=== PATIENT | female | born 1945 | race Caucasian/White ===

== ENCOUNTER 2021-09-22 06:43 | Observation (INO) ==
--- NOTE | 2021-08-27 13:59 | PAT Medication Instructions ---
Medication Instructions Date of Service August 27, 2021 Home Medications acetaminophen 500 mg tablet (Tylenol Extra Strength) 500 mg PO Q6H PRN cetirizine 10 mg tablet 10 mg PO QAM multivitamin 1 tab PO QAM omeprazole 20 mg capsule,delayed release 20 mg PO QAM psyllium husk 3.4 gram/5.4 gram oral powder (Metamucil) 1 tbsp PO QDL turmeric root extract 500 mg capsule 1,000 mg PO BID STOP taking 2 weeks before surgery (or as soon as possible if surgery is within 2 weeks) turmeric root extract 500 mg capsule 1,000 mg PO BID DO NOT take the morning of surgery cetirizine 10 mg tablet 10 mg PO QAM multivitamin 1 tab PO QAM psyllium husk 3.4 gram/5.4 gram oral powder (Metamucil) 1 tbsp PO QDL Take morning of surgery With a small sip of water, OTHERWISE NOTHING TO EAT OR DRINK AFTER MIDNIGHT: acetaminophen 500 mg tablet (Tylenol Extra Strength) 500 mg PO Q6H PRN (okay to take up to 4 hours prior to surgery if needed) omeprazole 20 mg capsule,delayed release 20 mg PO QAM Other Notes If you have any questions please call us at [phone] or [phone] or [phone] or [phone]
--- NOTE | 2021-08-28 09:48 | Anesthesiology Consultation ---
Date of Service August 28, 2021 Assessment & Plan (1) Encounter for pre-operative examination: - COVID screening: Per assessment on 08/26: Travel screen negative, no known COVID-19 positive contacts or current COVID-19 related symptoms. Patient vacc inated + booster. Surgeon arranging preop COVID testing. Awaiting results. - Outpatient joint pathway: Per booking sheet, plan for outpatient joint program. Patient seen at [facility] 08/28. Case reviewed with Dr. Causey. Patient is an acceptable risk to proceed as possible outpatient joint pathway pending perioperative course. Surgeon's office arranging post-op home management. Chart Review Chart Review: Acceptable Risk for Surgery (pending surgeon-ordered PCP preop evaluation) and Patient seen in Pre Admission Testing Teaching & Discussion Pre-Anesthesia Teaching/Discussion Notes: Instructed NPO after midnight before surgery,except medications with 15 cc of water. Medication instructions provided according to the [facility] guidelines. History Surgery Operation Date: 09/22/21 10:35 Proposed Procedures p Right Total Knee Arthroplasty - Kyle Mccracken DO Height/Weight Height: 5 ft 6 in Weight: 81.1 kg Allergies Allergy/AdvReac Type Severity Reaction Status Date / Time meloxicam AdvReac elevated Verified 08/26/21 15:46 LFTs Medications Home Medications Medication Instructions Recorded Confirmed Last Taken acetaminophen 500 mg tablet 500 mg PO Q6H PRN 08/26/21 08/26/21 Unknown (Tylenol Extra Strength) cetirizine 10 mg tablet 10 mg PO QAM 08/26/21 08/26/21 Unknown multivitamin 1 tab PO QAM 08/26/21 08/26/21 Unknown omeprazole 20 mg capsule,delayed 20 mg PO QAM 08/26/21 08/26/21 Unknown release psyllium husk 3.4 gram/5.4 gram 1 tbsp PO QDL 08/26/21 08/26/21 Unknown oral powder (Metamucil) turmeric root extract 500 mg 1,000 mg PO BID 08/26/21 08/26/21 Unknown capsule Past Medical History Medical History DDD (degenerative disc disease) GERD (gastroesophageal reflux disease) History of COVID-19 Dx 10/2020 > symptoms at time of: loss of taste/smell, nausea, headache, fever > resolved History of DVT (deep vein thrombosis) LE- unsure of side (age 29) r/t OCP, was previously on AC (since discontinued), no issues since Osteoarthritis Spinal stenosis Exercise / Class Metabolic Activity II 4-5 Yardwork/Stairs/Walk up hill (one FS (no CP, no SOB)) Past Family History Family History Sister Slow to wake up after anesthesia Past Surgical History Surgical History History of bunionectomy History of colonoscopy History of hammertoe correction History of left hip replacement History of tonsillectomy History of tubal ligation Past Anesthesia History No Hx of Anesthesia Complications Sister: "slow to wake" > no similar issues for patient personally History of PONV No Hx of PONV and Hx of Motion Sickness (Mild) Social History Smoking Status: Never smoker Do You Dip or Chew Tobacco: No Hx Alcohol Use: No Hx Substance Use: No substance use type: does not use Review of Systems Recent "cold" that has resolved except mild residual, occasional dry throat that needs to be "cleared." Patient denies chest pain, shortness of breath, dyspnea on exertion, fever, chills, cough, wheezing, palpitations. Physical Exam Vital Signs VITALS BP 160/91 P 80 TEMP 97.6 SP02 97%RA RESP 16 PHYSICAL Full cervical extension range of motion. Full TMJ range of motion. TMD 3.5 finger breaths Mallampati Score 1 Dentition: intact, several crowns Lungs: clear throughout to auscultation Cardiac: regular rate and rhythm, no murmurs noted Spine: normal Carotid arteries: negative bruit Extremities: no edema Lab Results Anesthesia Preop Results Results Anesthesia Widget: WBC 6.86 K/uL (4.8-10.8) 08/28/21 Hgb 12.3 g/dL (12.0-16.0) 08/28/21 Hct 38.4 % (37-47) 08/28/21 Plt 318 K/uL (130-400) 08/28/21 Na 141 mmol/L (136-145) 08/28/21 K 4.1 mmol/L (3.5-5.1) 08/28/21 Cl 109 mmol/L (98-107) H 08/28/21 CO2 28 mmol/L (21-32) 08/28/21 BUN 17 mg/dl (7-18) 08/28/21 Creat 0.82 mg/dl (0.6-1.2) 08/28/21 Glucose Level 90 mg/dl (70-99) 08/28/21 PT 9.8 Seconds (9.0-12.0) 08/28/21 PTT 27.1 Seconds (21.0-31.0) 08/28/21 INR 1.0 (0.9-1.1) 08/28/21 HA1c 5.8 % (4.5-5.6) H 08/28/21 Urine Color Yellow 08/28/21 Urine Appearance Clear (Clear) 08/28/21 Urine pH 6.0 (4.5-7.5) 08/28/21 Urine Specific [place] 1.014 (1.000-1.030) 08/28/21 Urine Protein Negative (Negative) 08/28/21 Urine Glucose (UA) Negative (Negative) 08/28/21 Urine Ketones Negative (Negative) 08/28/21 Urine Blood Negative (Negative) 08/28/21 Urine Nitrite Negative (Negative) 08/28/21 Urine Bilirubin Negative (Negative) 08/28/21 Urine Urobilinogen Negative (Negative) 08/28/21 Urine Leukocyte Esterase Trace (Negative) H 08/28/21 Urine WBC (Auto) 1-5 /hpf (0-5) 08/28/21 Urine RBC (Auto) 0-4 /hpf (0-4) 08/28/21 Urine Hyaline Casts (Auto) 1-5 /lpf (0-5) 08/28/21 Urine Epithelial Cells (Auto) 10-20 /lpf (0-5) H 08/28/21 Urine Bacteria (Auto) Negative (Negative) 08/28/21 Blood Type A Positive 08/28/21 Antibody Screen NEGATIVE 08/28/21 Testing Electrocardiogram Date: 08/28/21 Findings: + NSR @ (67) Chest X-Ray Date: 08/28/21 No acute process within the chest. Mild chronic interstitial thickening is again noted. Old mild to moderate compression deformities within the lower thoracic spine. Stress Test Date: 02/02/19 Type: exercise Stress echo negative for inducible ischemia. LVEF 60-64%. Moderately increased cLV wall thickness. Exercise capacity below average. Mild AV sclerosis. Mild secondary MR. Mild TR. 100% MPHR. 4.8 METS.
--- NOTE | 2021-09-09 12:16 | History & Physical Report ---
Date of Service September 09, 2021 date of surgery: 09/22/21 Procedure: Right Total Knee Arthroplasty Surgeon: Kyle Mccracken Assessment & Plan (1) Arthritis of right knee: Plan: Further care discussed with patient and at this point in time has failed conservative measures and would like to proceed with a right total knee replacement. Plan on discharge will be home with home health physical therapy as part of outpatient joint program. DVT prophylaxis with TEDs, SCDs and will also place on Xarelto 10mg po daily x 30 days. Patient will have follow up appointment in our office two weeks post op for staple/suture removal and re- evaluation. Patient otherwise has no other questions or concerns. The risks and benefits have been discussed including, but not limited to, risk of infection, nerve injury, stiffness, loss of motion, failure to improve, etc. Reasonable outcomes and options of treatment were discussed. An explanation of appropriate alternatives to the procedure that may be advantageous were discussed and their risks and benefits, as well as the risks and benefits of not proceeding with treatment. I offered to answer any additional inquiries concerning the treatment involved. All the patient's questions were answered. The patient is agreeable, understanding of the treatment plan and alternatives, and wishes to proceed with the treatment plan. History of Present Illness Chief Complaint: Right knee pain Primary Care Provider: Kasie Rankin MD Angelica is a 76 year old female who complains of right knee pain, presents for pre-op evaluation prior to a right total knee replacement by Dr Mccracekn at [facility]. she complains of pain, decreased range of motion, instability and stiffness in her right knee. Currently the patient states that the symptoms are moderate- severe and is described as aching, sharp and throbbing. The symptoms occur continuously. The symptoms are aggravated by ascending stairs, daily activities, first steps while awake walking. Prior NSAIDs include Meloxicam which resulted in elevated LFTs. she has been treated with previous visco injections in the past without much relief. Allergies Allergy/AdvReac Type Severity Reaction Status Date / Time meloxicam AdvReac elevated Verified 08/26/21 15:46 LFTs Home Medications Medication Instructions Recorded Confirmed Type acetaminophen 500 mg tablet 500 mg PO Q6H PRN 08/26/21 08/26/21 History (Tylenol Extra Strength) cetirizine 10 mg tablet 10 mg PO QAM 08/26/21 08/26/21 History multivitamin 1 tab PO QAM 08/26/21 08/26/21 History omeprazole 20 mg capsule,delayed 20 mg PO QAM 08/26/21 08/26/21 History release psyllium husk 3.4 gram/5.4 gram 1 tbsp PO QDL 08/26/21 08/26/21 History oral powder (Metamucil) turmeric root extract 500 mg 1,000 mg PO BID 08/26/21 08/26/21 History capsule Past Med/Surg History Medical History DDD (degenerative disc disease) GERD (gastroesophageal reflux disease) History of COVID-19 Dx 10/2020 > symptoms at time of: loss of taste/smell, nausea, headache, fever > resolved History of DVT (deep vein thrombosis) LE- unsure of side (age 29) r/t OCP, was previously on AC (since discontinued), no issues since Osteoarthritis Spinal stenosis Surgical History History of bunionectomy History of colonoscopy History of hammertoe correction History of left hip replacement History of tonsillectomy History of tubal ligation Family History Sister Slow to wake up after anesthesia Social History Smoking Status: Never smoker Second Hand Exposure: Yes (hx); Hx Alcohol Use: No Hx Substance Use: No Preferred Language: Swedish Communication Ability: Effective Yacht Rigger Required: No Beliefs That Will Affect Care: None Current Living Situation: Alone Feels Safe at Home: Yes Assistive Devices: Glasses Review of Systems Review of Systems: All systems reviewed & are unremarkable except as noted in HPI & below Constitutional: no fever, no chills and no sweats Respiratory: no cough and no dyspnea Cardiovascular: no chest pain, no dyspnea and no orthopnea Gastrointestinal: no abdominal pain, no nausea and no vomiting Musculoskeletal: as per Subjective / HPI Physical Exam Physical Exam: HT: 5ft 6in WT: 81.1kg Constitutional: WD/WN, vitals as above no acute distress Respiratory: normal respiratory effort, lungs clear to auscultation no respiratory distress, no labored breathing and does not use accessory muscles Cardiovascular: RRR, no murmur, no edema Gastrointestinal (Abdomen): normal bowel sounds, soft, nontender, no hepatosplenomegaly Musculoskeletal: Knee: + knee abnormal to inspection (RIGHT KNEE- ), + effusion (+1 effusion), + limited ROM of knee (ROM 0/3/110), + knee ROM with crepitation, + joint line tenderness (medial joint line) and + Maya's sign positive; no deformity, no skin erythema, no ecchymosis, no valgus laxity, no varus laxity, anterior drawer test negative, Raymundo's sign negative and pivot shift test negative Results & Data Results & Data ([facility]) Diagnostic Findings Right Knee X-ray: Right knee series showing advanced degenerative changes to the right knee, narrowing of the lateral compartment and patello-femoral joint with patellar spurring noted, findings showing joint space narrowing of the lateral compartment and patello-femoral joint, osteophyte formation and subchondral sclerosis noted. no acute bony pathology noted.
[~2021-09-22 06:43] MED LIST: ACETAMINOPHEN 500 MG TAB PO SCH; CeleBREX 200 MG CAP PO SCH; EPINEPHrine INJ 1 MG/ML AMP ONE; FAMOTIDINE 20 MG TAB PO SCH; GABAPENTIN 300 MG CAP PO SCH; LIDOCAINE 2%/EPINEPHRINE 1:200,000 20 ML SDV ONE; LR 500ML BOLUS, THEN 15ML/HR IV SCH; METOCLOPRAMIDE HCL 10 MG TABLET PO SCH; ROPIVACAINE 0.5% 5 MG/ML 30 ML VIAL ONE; ROPIVACAINE 0.5% HCL/PF 150 MG, BUPIVACAINE 0.75% MPF 20 ML, EPINEPHrine 30MG/30ML (OR ... INSTIL SCH; TRANEXAMIC ACID 1,000 MG **IV Intra-op IV SCH; TRANEXAMIC ACID 1,000 MG **IV Pre-op IV SCH; ceFAZolin 2000MG 2,000 MG/15 ML SYR IV SCH; dexAMETHasone 4 MG TAB PO SCH
--- NOTE | 2021-09-22 07:29 | History & Physical Bridge Note ---
Date of Service September 22, 2021 History & Physical Bridge Note I have examined the patient, reviewed the History & Physical and in the interval since the performance of the History & Physical I have noted the following changes of clinical significance: no changes noted
[2021-09-22] MEDS ORDERED: MEPIVACAINE HCL 2% 20 ML VIAL ONE (07:43)
[2021-09-22] MEDS ORDERED: ePHEDrine sulfate 50 MG/ML SYR ONE (08:04)
[2021-09-22] MEDS ORDERED: ONDANSETRON INJ 2 MG/ML 2 ML VIAL ONE ×2 (08:04→11:00)
[2021-09-22] MEDS ORDERED: PHENYLEPHRINE 100MCG/ML 5ML SYR ONE (08:04)
[2021-09-22] MEDS ORDERED: DEXAMETHASONE SOD INJ 4 MG/ML VIAL ONE (08:04)
[2021-09-22] MEDS ORDERED: LIDOCAINE 2% 2 ML VIAL/AMP(20MG/ML) INFIL ONE (08:04)
[2021-09-22] MEDS ORDERED: PROPOFOL IV EMULSION 10 MG/ML 20 ML VIAL IV ONE (08:04)
[2021-09-22] MEDS ORDERED: fentaNYL citrate 100 MCG/2 ML VIAL ONE (08:05)
[2021-09-22] MEDS ORDERED: MIDAZOLAM HCL 1 MG/ML 2ML VIAL ONE (08:05)
[2021-09-22] MEDS ORDERED: SCOPOLAMINE 1 MG TDSY TD ONE ×2 (08:30→08:31)
[2021-09-22] MEDS ORDERED: ORTHO JOINT ANESTHETIC ONE (09:28)
[2021-09-22] MEDS ORDERED: ACETAMINOPHEN 1000 MG/100 ML IV IV ONE (10:14)
[2021-09-22] MEDS ORDERED: MoRPHine SULFATE 2 MG/ML CARP ONE (10:18)
[2021-09-22] MEDS ORDERED: KETAMINE 50 MG/5 ML SYRINGE ONE (10:43)
--- NOTE | 2021-09-22 11:04 | Operative Report ---
Post Operative Report Pre & Post Diagnosis Operation Date: 09/22/21 08:55 Pre-Op Diagnosis: Unilateral Primary Osteoarthriits, Right Knee Post-Op Diagnosis: Unilateral Primary Osteoarthriits, Right Knee I identified the patient and participated in the time-out.: Yes Procedure Operation Date: 09/22/21 08:55 Actual Procedures p Right Total Knee Arthroplasty(Right) utilizing [employer]ph[employer]ull[employer] journey 2 patient matched total knee arthroplasty size femur 5 tibia 4 polythirteen patella 32 Kyle Mccracken DO Surgeon Kyle Mccracken DO Computer Science Intern [employer] Estimated Blood Loss 5 Findings Consistent with Post-Op Diagnosis Patient presents with severe end-stage DJD right knee no response to conservative management eburnated [id number] subchondral sclerosis marginal osteophyte subchondral cystic changes with moderate to large effusion Specimens Bone and cartilage Drains Medium bore Hemovac Anesthesia Type MAC Epidural Regional Complications none Disposition Accompanied Patient To Recovery: No Disposition: Recovery Room Indications Patient presents with severe end-stage DJD no response to conservative management failed attempted corticosteroid injection Visco supplementation relative rest activity modification the above intraoperative findings were noted Description of Procedure After proper prepping and draping of the Right lower extremity anterior midline incision was made over the region of the extensor extensor mechanism after meticulous hemostasis was obtained and maintained in subcutaneous tissues a medial parapatellar incision was made The patella was subluxed lateralward the medial lateral gutter were cleaned from any hypertrophic synovitis and scar tissue of the distal femoral block was placed and the distal femoral osteotomy cut was made subsequently the chamfers anterior and posterior osteotomy cuts were made utilizing the 4-in-1 block the tibia was subsequently subluxed anteriorward medial and ateral meniscal remnants were excised in their entirety remnants of the anterior and posterior cruciate ligaments were excised in their entirety excellent exposure of the proximal tibia was obtained the tibial osteotomy guide was placed on the proximal tibial osteotomy cut was made once again the knee was irrigated with copious amounts of sterile saline solution the patella was subsequently everted lateralward thickened scar tissue around the patella was removed the patella was subsequently cut utilizing a freehand technique and was drilled prepared for final preparation and placement of patella socially flexion-extension gaps were checked and the equal and symmetric trials were placed to the appropriate femoral and tibial trials with poly-spacer being placed for equal flexion and extension gaps and full range of motion including extension to 0 and flexion to 140 the trial components after having been taken to recovery range of motion was subsequently removed meticulous hemostasis was obtained and maintained subsequently a knee block injection of joint cocktail including ropivacaine 0.5% 150 mg. Bupivacaine 0.5% epinephrine 1-200,030 mL's toradol 30 mg dexamethasone 4 mg ketamine 10 mg clonidine 100 micrograms normal saline solution 30 mg was infiltrated into the soft tissues of the posterior knee medial lateral gutters and periosteal synovium special attention was paid to protect neurovascular structures at all times subsequently trial components having been removed the knee was irrigated with sterile saline solution. debris was removed the proximal tibia was subsequently prepared and was made ready for the placement of the tibial component tibial component was also cemented and tamped into position the femoral component was subsequently placed and cemented in the position the patellar component was subsequently cemented in position because hemostasis once again obtained and maintained wound having been thoroughly irrigated with debridement and debridement lavage was performed as well as a medial parapatellar incision closed with #1 Vicryl in interrupted fashion subcutaneous was closed with #2 Vicryl skin was closed with skin clips. PA-C was necessary for prepping and drapping as well as wound closure of deep fascia Sub cutaneous tissue and skin and was necessary for the case. A sterile compressive dressing was placed patient was taken to recovery in stable condition of report dictated by Nawaf I attest to the content of the Intraoperative Record and any orders documented therein. Any exceptions are noted below. I attest to the content of the Intraoperative Record and any orders documented therein. Any exceptions are noted below.
[2021-09-22] MEDS ORDERED: HYDROmorphone INJ 0.5 MG/0.5 ML SYR IV PRN (11:49)
[2021-09-22] MEDS ORDERED: oxyCODONE HCL IR 5 MG TAB (IMMEDIATE RELEASE) PO PRN ×2 (11:49)
[2021-09-22] MEDS ORDERED: ONDANSETRON INJ 2 MG/ML 2 ML VIAL IV PRN ×3 (11:49→17:06)
[2021-09-22] MEDS ORDERED: SODIUM CHLORIDE 0.9% 1000ML 1,000 ML IV SCH (12:00)
[2021-09-22] MEDS ORDERED: NALOXONE HCL 0.4 MG/1 ML VIAL/CARP IV PRN ×2 (12:03→17:06)
[2021-09-22] MEDS ORDERED: ATROPINE SULFATE 0.1 MG/ML 10ML SYR IV PRN (12:03)
[2021-09-22] MEDS ORDERED: ePHEDrine sulfate 50 MG/ML AMP IV PRN (12:03)
[2021-09-22] MEDS ORDERED: PROMETHAZINE HCL 12.5 MG in SODIUM CHLORIDE 0.9% 50 ML IV PRN (12:03)
[2021-09-22] MEDS ORDERED: HYDROmorphone INJ 1 MG/ML SYRINGE IV PRN (12:03)
[2021-09-22] MEDS ORDERED: LABETALOL HCL IV 5 MG/ML 20ML IV PRN (12:03)
[2021-09-22] MEDS ORDERED: FLUMAZENIL 0.1 MG/1 ML 10 ML VIAL IV PRN (12:03)
--- NOTE | 2021-09-22 12:39 | XRay Report ---
TWO VIEWS RIGHT KNEE CLINICAL HISTORY: Postoperative examination. FINDINGS: AP and crosstable lateral portable views of the right knee are obtained. A right knee arthr oplasty is in near anatomic alignment. There has been undersurface remodeling of the patella. No acut e fracture is seen. There are expected postoperative changes around the knee including a surgical mike in, soft tissue edema, and subcutaneous gas. IMPRESSION: Expected postoperative changes status post right knee arthroplasty. No acute fracture is seen. ACT 112: Negative or not required by law. Electronically signed by: Mario Byrd M.D. 09/22/2021 12:37 PM
[2021-09-22] MEDS ORDERED: ALBUTEROL 0.083% NEBU SOLN 3 ML VIAL NEB STA (13:01)
[2021-09-22] MEDS ORDERED: ALBUTEROL 0.083% NEBU SOLN 3 ML VIAL ONE (13:08)
--- NOTE | 2021-09-22 14:01 | Anesthesiology Progress Note ---
Date of Service September 22, 2021 Anesthesia Post Procedure Vital Signs Vital Signs: Temp Pulse Pulse Resp BP Pulse Ox 09/22/21 13:45 36.4 C L 80 20 153/79 H 96 09/22/21 13:35 78 15 159/85 H 98 09/22/21 13:25 84 20 151/85 H 95 09/22/21 13:15 71 12 149/88 H 100 09/22/21 13:14 77 14 93 09/22/21 13:05 36.7 C 75 17 152/93 H 98 09/22/21 12:55 72 15 141/77 H 89 L 09/22/21 12:45 72 10 L 125/76 93 09/22/21 12:35 67 15 150/91 H 90 09/22/21 12:25 75 12 149/92 H 98 09/22/21 12:15 81 12 132/79 94 09/22/21 12:05 73 16 132/70 97 09/22/21 11:55 79 17 131/73 97 09/22/21 11:46 36.4 C L 74 20 118/65 95 09/22/21 06:50 36.7 C 83 20 180/93 H 97 Transfer of Care Handoff Completed per policy Notes Mental Status: alert / awake / arousable Patient Amnestic to Procedure: Yes Nausea / Vomiting: adequately controlled Pain: adequately controlled Airway Patency, RR, SpO2: stable & adequate BP & HR: stable & adequate Hydration State: stable & adequate Anesthetic Complications: no major complications apparent
[2021-09-22] MEDS ORDERED: CHECK SCOPOLAMINE PATCH PLACEMENT SCH (16:00)
[2021-09-22] MEDS ORDERED: MAGNESIUM HYDROXIDE SUSP 30 ML UDC PO PRN (17:06)
[2021-09-22] MEDS ORDERED: bisacodyL 10 MG SUPP PR PRN (17:06)
[2021-09-22] MEDS: SODIUM CHLORIDE 0.9% 1000ML 1,000 ML IV SCH (17:24)
[2021-09-22] MEDS: ceFAZolin 2000MG 2,000 MG/15 ML SYR IV SCH (18:26)
--- NOTE | 2021-09-22 18:45 | XRay Report ---
XR chest 1V portable HISTORY: Desaturation/cough COMPARISON: Chest 08/28/2021. FINDINGS: No focal lung consolidations to suggest pneumonia. No evidence for pulmonary edema. No pleu ral effusions. No pneumothorax. The heart is normal in size. Slightly rotated study. Mild chronic int erstitial thickening, unchanged. IMPRESSION: No significant change compared to the prior study. No acute process. ACT 112: Negative or not required by law. Electronically signed by: Robert Stark M.D. 09/22/2021 6:43 PM
[2021-09-22] MEDS ORDERED: SENNA 8.6 MG TAB PO SCH (21:00)
[2021-09-22] MEDS: DOCUSATE SODIUM 100 MG CAP PO SCH (21:00)
[2021-09-22] MEDS: ACETAMINOPHEN 500 MG TAB PO SCH (21:00)
[2021-09-23] MEDS: ceFAZolin 2000MG 2,000 MG/15 ML SYR IV SCH (02:22)
[2021-09-23] MEDS: SODIUM CHLORIDE 0.9% 1000ML 1,000 ML IV SCH (04:47)
[2021-09-23] MEDS: ACETAMINOPHEN 500 MG TAB PO SCH (05:52)
[2021-09-23 06:24] LABS: Hematocrit (blood only) 33.5 % (37-47); Hemoglobin 10.9 g/dL (12.0-16.0); Mean Corpuscular Hemoglobin 30.5 pg (25-34); Mean Corpuscular Hgb Conc 32.5 g/dL (32-36); Mean Corpuscular Volume 93.8 fL (80-100); Platelet Count 245 K/uL (130-400); RDW Coefficient of Variation 13.6 % (11.5-14.5); RDW Standard Deviation 46.8 fL (36.4-46.3); Red Blood Count 3.57 M/uL (4.2-5.4); White Blood Count 15.61 K/uL (4.8-10.8)
[2021-09-23 06:57] LABS: BUN Creatinine Ratio 21.4 (10-20); Calcium 8.3 mg/dl (8.5-10.1); Creatinine Clr Calc Pharmacy 55.1 ml/min; Est GFR (African American) 69.6 ml/min; Est GFR (Non-African American) 60.1 ml/min; Potassium 3.9 mmol/L (3.5-5.1)
[2021-09-23] MEDS ORDERED: MULTIVITAMIN TAB PO SCH (09:00)
[2021-09-23] MEDS ORDERED: NON-FORMULARY MEDICATION (Multivitamin Tablet) PO SCH (09:00)
[2021-09-23] MEDS ORDERED: RIVAROXABAN 10 MG TABLET PO SCH (09:00)
[2021-09-23] MEDS ORDERED: CETIRIZINE HCL 10 MG TABLET PO SCH (09:00)
[2021-09-23] MEDS ORDERED: PANTOprazole 40 MG TAB PO SCH (09:00)
[2021-09-23] MEDS: DOCUSATE SODIUM 100 MG CAP PO SCH (09:13)
[2021-09-23] MEDS ORDERED: PSYLLIUM 58.6% POWDER PACKET PO SCH (11:30)
--- NOTE | 2021-09-24 11:53 | Discharge Summary ---
Date of Service September 24, 2021 Admission HPI Per Admitting Provider Angelica is a 76 year old female who complains of right knee pain, presents for pre-op evaluation prior to a right total knee replacement by Dr Mccracken at [facility]. she complains of pain, decreased range of motion, instability and stiffness in her right knee. Currently the patient states that the symptoms are moderate- severe and is described as aching, sharp and throbbing. The symptoms occur continuously. The symptoms are aggravated by ascending stairs, daily activities, first steps while awake walking. Prior NSAIDs include Meloxicam which resulted in elevated LFTs. she has been treated with previous visco injections in the past without much relief. Admission Exam Per Admitting Provider Physical Exam: HT: 5ft 6in WT: 81.1kg Constitutional: WD/WN, vitals as above no acute distress Respiratory: normal respiratory effort, lungs clear to auscultation no respiratory distress, no labored breathing and does not use accessory muscles Cardiovascular: RRR, no murmur, no edema Gastrointestinal (Abdomen): normal bowel sounds, soft, nontender, no hepatosplenomegaly Musculoskeletal: Knee: + knee abnormal to inspection (RIGHT KNEE- ), + effusion (+1 effusion), + limited ROM of knee (ROM 0/3/110), + knee ROM with crepitation, + joint line tenderness (medial joint line) and + Maya's sign positive; no deformity, no skin erythema, no ecchymosis, no valgus laxity, no varus laxity, anterior drawer test negative, Raymundo's sign negative and pivot shift test negative Principal Diagnosis Osteoarthritis right knee Discharge Data Allergies Allergy/AdvReac Type Severity Reaction Status Date / Time meloxicam AdvReac elevated Verified 09/22/21 07:10 LFTs Procedures Performed Operation Date: 09/22/21 08:55 Actual Procedures p Right Total Knee Arthroplasty(Right) - Kyle Mccracken DO Ordered Studies 09/22/21 05:00 US - OR guided needle placemen Routine Hospital Course (1) Arthritis of right knee: Date of Service September 23, 2021 Assessment & Plan (1) Arthritis of right knee: Plan: Postop day 1 status post right total knee arthroplasty. PT/OT protocols. Weightbearing as tolerated. Progressing well. DVT prophylaxis-rivaroxaban, SCDs, MATT hose Pain management as written DC planning-home health services upon discharge. Admission and Anticipated Discharge Date Admission Date: September 22, 2021 Subjective POD 1 Patient seen on her postoperative day 1 visit. Patient was seen earlier in the day by Dr. Mccracken and is currently sitting in her chair at the bedside. He has no complaints and feeling good. Pain is controlled. She has progressed well with her physical therapy. She is hoping to go home. She denies any shortness of breath, chest pain, lightheadedness. Hemoglobin 10.9 Physical Exam Physical Exam: Dressings are clean, dry, and intact. Calves are soft no ntender. Neurovascular intact. Toes are mobile. Total Time Total Time Spent Total Time Spent (In Minutes): 5 Discharge Plan Discharge Items Patient Disposition: Home - Home Health Services Reason For Visit: Unilateral Primary Osteoarthriits, Right Knee Discharge Diagnosis: Right Knee Osteoarthritis Activity: Per Instructions section Weightbearing: Right weightbearing Weightbearing Comment: as tolerated with walker Non-emergency contact: Surgeon Call non-emergency contact if: you have any medication questions, your pain is not controlled, your temperature is above 101.5, your wound has increased redness and your wound has increased drainage Follow-up/Referrals: [facility] [Outside] (as per surgeon's office) Kyle Mccracken, [Surgeon] - (Follow up in 10-14 days from the day of surgery for your first wound check.) Kasie Rankin MD [Primary Care Provider] - Diet: Regular Addtl Attending Provider Instructions: Medications: Your medications have been sent to your pharmacy prior to your surgery. You may pick them up when convenient for you. Your medications usually consist of a narcotic pain medication, aspirin or a stronger type of blood thinner, Tylenol, a stool softener or stimulant, and possibly an antibiotic. Please call with any questions about your medications. Home health services will provide physical therapy and nursing upon your arrival to home. ACTIVITY RECOMMENDATIONS: SELF CARE INSTRUCTIONS AFTER TOTAL KNEE REPLACEMENT A. You may need to continue a physical therapy program after discharge from the hospital. There are several options available to you. Your doctor will assist you in selecting the best one for you. 1. An out-patient facility 2 to 3 times a week for therapy or home therapy. 2. Continue working on all exercises taught to you in the hospital. Your goals should be to increase bending of your knee to 90 degrees and beyond and to fully straighten your knee. B. You may progress at your own pace from walking with a walker or crutches to a cane; then to no assistive devices. C. Make walking a part of your daily routine. Be up as much as comfortable with rest periods throughout the day. Rest with leg elevation is very important. Use the ice wrap frequently for the first 3-4 weeks. D. There are no restrictions on activities. You may ride in a car, shop, participate in cotton weigher and all social activities. E. Wear the long elastic stockings (MATT hose) 20 hours a day for 2 weeks after surgery. They can be removed several times a day for laundering and for a bath. F. You may shower, no tub baths until cleared by your doctor. SPECIAL CARE INSTRUCTIONS: VERY IMPORTANT TO READ AND REVIEW A. There are a few signs you need to watch for after you are home. Call [facility] if you notice any of the followin. Increased severe knee pain. Some pain is expected especially when you exercise. 2. Increased swelling in your leg or knee; pain or swelling of the calf m uscle in either lower leg. 3. Any fluid drainage from the incision. 4. Shortness of breath or chest pain. B. Please call [facility] at if you have any concerns or questions about your operation or recovery. The doctor or his nurse will return your call promptly. C. You must take antibiotics before dental work, bladder, bowel or other surgery. Your doctor will provide you with a permanent care to carry describing this precaution. IMPORTANT: * REMEMBER TO TAKE XARELTO 10MG PO DAILY. THIS IS YOUR BLOOD THINNER. * CALL IF INCREASED PAIN, REDNESS, DRAINAGE OR FEVER GREATER THAT 101. * WEAR MATT HOSE 20 HOURS PER DAY FOR 2 WEEKS. * DERMABOND Prineo- This is a mesh tape dressing that is covered with glue. It should remain in place until the incision is properly healed, usually 10-14 days. This dressing is designed to naturally slough off. You may trim the excess mesh tape as it peels off. Incision may be briefly wet in a shower. Dry immediately by blotting with a clean, dry towel. Do not bath or swim until instructed by your doctor. Do not scratch, rub, or pick at the dressing. Do not apply any topical ointments or lotions until dressing is completely removed and/or instructed by your doctor. There may be a small piece of suture material at one end of your incision. Do not pull or trim this. If it is bothersome or catching on clothing, you may cover it with a band-aid. . FOLLOW UP VISIT: If appointment is not already scheduled: Please call [facility] to make a follow-up appointment for 2 weeks after your surgery at . Pending Studies at Discharge: No Stand-Alone Forms: [facility], Opioid Pain Management Medications and DC Order Prescriptions: New polyethylene glycol 3350 [Miralax] 17 gram powder in packet 17 g PO DAILY PRN (Reason: constipation) Qty: 5 RF: 0 acetaminophen 500 mg capsule 1,000 mg PO Q8H 14 Days Qty: 84 RF: 0 oxycodone 5 mg Tablet 5 mg PO Q4H MDD 6 PRN (Reason: pain) Qty: 30 RF: 0 rivaroxaban 10 mg tablet 10 mg PO DAILY Qty: 30 RF: 0 Continued multivitamin Tablet 1 tab PO QAM RF: 0 omeprazole 20 mg Capsule,Delayed Release(Dr/Ec) 20 mg PO QAM RF: 0 Metamucil 3.4 gram/5.4 gram Powder 1 tbsp PO QDL RF: 0 cetirizine 10 mg Tablet 10 mg PO QAM RF: 0 Discontinued acetaminophen [Tylenol Extra Strength] 500 mg Tablet 500 mg PO Q6H PRN (Reason: Pain) RF: 0 turmeric root extract 500 mg Capsule 1,000 mg PO BID RF: 0 Discharge Orders: Discharge Order (Routine); Ordered 09/23/21 Ordered By: Dalton Self Admission Data Admit Date/Time: 09/22/21 15:50 Attending Provider: Kyle Mccracken Admit Provider: Kyle Mccracken Primary Care Provider: Kasie Rankin Other Providers: [facility] Other Interventions: Discharge Summary Assessment (RN) Last Done: 09/23/21 09:45
== END 2021-09-23 12:21 | disposition home health service (06) ==
LOC: 3E 06:43 → ASU 06:43